=== PATIENT | male | born 1955 | race Hispanic/Latino ===

== ENCOUNTER 2025-09-04 20:32 | Emergency (ER) | payer OTHER ==
[~2025-09-04] VITALS: Ht 160 cm; Wt 67.6 kg
[2025-09-04] MEDS ORDERED: CEPHALEXIN500 MG PO (21:11)
[2025-09-04] MEDS ORDERED: MUPIROCIN22 GM TOP (21:11)
[2025-09-04] MEDS ORDERED: IBUPROFEN600 MG PO (21:11)
[2025-09-04] MEDS: DIPHTH,PERTUSS(ACELL),TET VAC 0.5 ML SYRINGE IM ONE (21:12)
[2025-09-04] MEDS: BACITRACIN ZINC 0.9GM TP ONE (21:12)
[2025-09-04 21:47] VITALS: PULSE 61; RESP 16; TEMP 98.4
[2025-09-04 21:57] VITALS: BP 133/75; PULSE 61; RESP 16; TEMP 98.4; O2SAT 97
== END 2025-09-04 21:51 | disposition home or self-care (01) ==
LOC: FSED 20:55
DX: S01.01XA Laceration without foreign body of scalp, initial encounter (principal); W20.8XXA Other cause of strike by thrown, projected or falling object, initial encounter; Y92.89 Other specified places as the place of occurrence of the external cause; I10 Essential (primary) hypertension; E78.5 Hyperlipidemia, unspecified
CPT/HCPCS: 99283

== ENCOUNTER 2025-09-16 12:17 | Emergency (ER) | payer OTHER ==
[~2025-09-16] VITALS: Ht 167.6 cm; Wt 66.8 kg
[~2025-09-16 12:17] MED LIST: CEPHALEXIN500 MG PO; IBUPROFEN600 MG PO; MUPIROCIN22 GM TOP
[2025-09-16 12:26] VITALS: PULSE 73; RESP 16; TEMP 98.3; O2SAT 98
== END 2025-09-16 12:41 | disposition home or self-care (01) ==
LOC: FSED 12:23
DX: Z48.02 Encounter for removal of sutures (principal)
CPT/HCPCS: S0630